=== PATIENT | male | born 1990 | race Caucasian/White ===

== ENCOUNTER 2018-11-05 04:42 | Emergency (ER) | payer OTHER ==
[~2018-11-05] VITALS: Ht 188 cm; Wt 127.0 kg
[~2018-11-05 04:42] MED LIST: Augmentin 875-1 EACH PO; Men's Multi-Vi1 EACH PO; Naprosyn500 MG PO
[2018-11-05 05:04] LABS: BASOPHILS ABSOLUTE AUTO 0.07 K/mm3 (0.00-0.23); BASOPHILS PERCENT AUTO 1 % (0-2); EOSINOPHILS ABSOLUTE AUTO 0.34 K/mm3 (0.00-0.68); EOSINOPHILS PERCENT AUTO 4 % (0-6); Hematocrit 45.4 % (37.0-53.0); Hemoglobin 15.2 g/dL (13.5-17.5); IMMATURE GRAN ABSOLUTE AUTO 0.03 K/mm3 (0.00-0.10); IMMATURE GRAN PERCENT AUTO 0 % (0-1); LYMPHOCYTES ABSOLUTE AUTO 2.32 K/mm3 (0.84-5.20); LYMPHOCYTES PERCENT AUTO 24 % (21-46); MONOCYTES ABSOLUTE AUTO 1.13 K/mm3 (0.16-1.47); MONOCYTES PERCENT AUTO 12 % (4-13); Mean Corpuscular HGB 30.6 pg (26.0-34.0); Mean Corpuscular HGB Conc 33.5 g/dL (31.5-36.5); Mean Corpuscular Volume 91 fL (80-100); Mean Platelet Volume 8.6 fL (9.1-12.4); NEUTROPHILS ABSOLUTE AUTO 5.84 K/mm3 (1.96-9.15); NEUTROPHILS PERCENT AUTO 60 % (41-73); Platelet Count 258 K/mm3 (150-400); RDW Coefficient Variation 13.1 % (11.7-14.2); RDW Standard Deviation 43.8 fL (35.1-46.3); Red Blood Cell Count 4.97 M/mm3 (4.30-5.90); White Blood Cell Count 9.73 K/mm3 (4.00-11.30)
[2018-11-05 05:22] LABS: Alanine Aminotransfer (ALT/SGP 74 U/L (12-78); Albumin, Blood 3.8 g/dL (3.4-5.0); Alk Phos 114 U/L (50-136); Anion Gap 7 mmol/L (6-16); Aspartate Aminotrans (AST/SGOT 27 U/L (12-37); Bilirubin, Total 0.3 mg/dL (0.1-1.0); Blood Urea Nitrogen 20 mg/dL (8-24); Bun/Creatinine Ratio 23.6 (12.0-20.0); CO2, Blood 22 mmol/L (21-32); Chloride, Blood 115 mmol/L (98-108); Creatinine, Blood 0.85 mg/dL (0.60-1.20); Glomerular Filtration Rate >60 (60-); Glucose, Blood 120 mg/dL (70-99); Sodium, Blood 144 mmol/L (136-145); Total Protein, Blood 7.8 g/dL (6.4-8.2)
[2018-11-05 06:17] LABS: Source, Urine Clean Catch
[2018-11-05 06:21] LABS: Bilirubin, Urine Neg (Neg); Blood, Urine Neg (Neg); Glucose Qualitative, Urine Neg (Neg); Ketones, Urine Neg (Neg); Leukocyte Esterase, Urine Neg (Neg); Nitrite, Urine Neg (Neg); Protein, Urine Neg (Neg); Urobilinogen, Urine NORM (Normal)
[2018-11-05 06:34] LABS: Appearance, Urine Clear (Clear); Color, Urine Yellow (P-Yellow)
[2018-11-05] MEDS ORDERED: Carafate1 GM/10 ML PO (06:42)
[2018-11-05] MEDS ORDERED: ONDA4ODT MM (06:42)
== END 2018-11-05 06:59 | disposition home or self-care (01) ==
LOC: ER 04:42
PROVIDERS: Emergency Medicine
DX: R10.9 Unspecified abdominal pain (principal); R11.2 Nausea with vomiting, unspecified; R19.7 Diarrhea, unspecified; F17.200 Nicotine dependence, unspecified, uncomplicated
CPT/HCPCS: 36415; 74177; 80053; 81003; 83690; 85025; 96361; 96374-59; 96375; 99284-25; J1170; J2270; J2405; J7030; Q9967

== ENCOUNTER 2020-01-10 04:08 | Emergency (ER) | payer OTHER ==
[~2020-01-10] VITALS: Ht 188 cm; Wt 102.1 kg
[~2020-01-10 04:08] MED LIST changes: +Carafate1 GM/10 ML PO; +ONDA4ODT MM
[2020-01-10] MEDS ORDERED: Bactrim Ds Tab1 EACH PO (05:17)
== END 2020-01-10 05:25 | disposition home or self-care (01) ==
LOC: ER 04:08
DX: S50.861A Insect bite (nonvenomous) of right forearm, initial encounter (principal); L03.113 Cellulitis of right upper limb; F17.200 Nicotine dependence, unspecified, uncomplicated; W57.XXXA Bitten or stung by nonvenomous insect and other nonvenomous arthropods, initial encounter
CPT/HCPCS: 99281; A9270-GY